=== PATIENT | female | born 1980 | race Asian ===

== ENCOUNTER 2016-07-19 14:34 | Outpatient (CLI) | payer MEDICAID ==
[~2016-07-19] VITALS: Ht 149.9 cm; Wt 75.8 kg
[2016-07-19 14:36] VITALS: Ht 149.9 cm; Wt 75.8 kg
[2016-07-19 14:43] VITALS: BP 140/73; PULSE 131; RESP 18
[2016-07-19] MEDS ORDERED: FERR325C PO (14:50)
[2016-07-19] MEDS ORDERED: CALC600T11 PO (14:50)
[2016-07-19] MEDS ORDERED: PRENAT PO (14:50)
[2016-07-19 15:29] VITALS: BP 124/70; PULSE 105
--- NOTE | 2016-07-19 16:07 | RADRPT ---
PROCEDURE: US OB biophysical profile. CLINICAL INDICATION: decreased movements, GDM TECHNIQUE: Multiple sonographic images of the pelvis were obtained. The images were reviewed on a PACS workstation. COMPARISON: No prior studies are available for comparison. FINDINGS: There is a single viable intrauterine gestation. Cardiac activity is present with 148 beats per min [place]. There is a vertex presentation. The placenta is anterior. There is no evidence of placental abruption. There is a normal amount of amniotic fluid with an LLOYD = 11.7 cm. Biophysical profile: movement 2/2 tone 2/2. breathing 2/2 LLOYD 2/2 Total 12/17 RPTAT: AA . IMPRESSION: Normal biophysical profile. . .Heath León MD, MD Date Time Electronically viewed and signed by .Heath León MD, MD on 07/19/2016 16:06 .S/
--- NOTE | 2016-07-22 12:17 | TRIAGE ---
OB Triage Datetime Report Generated by CPN: 07/22/2016 12:16 Datetime: 07/19/2016 16:10 Labor Evaluation Frequency: 1-3 Monitor Mode: External Duration (sec)2399: 50-100 Quality: Mild Pattern: Normal: <= 5 Contractions in 10 Minutes Resting Tone [place]: Relaxed Heart Rate FHR Baseline Rate: 140 Monitor Mode: External US FHR Baseline Changes: No Baseline Change Variability: Moderate 6-25 bpm Accelerations: 15X15 Decelerations: None Category: Category I Pain Assessment Pain Presence: None/Denies Pain Type: Contraction; Pressure Pain Location: Abdomen Pain Relief Measures: Comfort Measures Pain Assessment Comments: Pt denies feeling pain with contractions, only states feeling pressure Datetime: 07/19/2016 15:07 Labor Evaluation Frequency: 1-2.5 Monitor Mode: External Duration (sec)2399: 50-100 Quality: Mild Pattern: Normal: <= 5 Contractions in 10 Minutes Resting Tone [place]: Relaxed Heart Rate FHR Baseline Rate: 150 Monitor Mode: External US FHR Baseline Changes: No Baseline Change Variability: Moderate 6-25 bpm Accelerations: 15X15 Decelerations: None Category: Category I Pain Assessment Pain Presence: Intermittent Pain Type: Contraction Pain Location: Abdomen Pain Relief Measures: Comfort Measures Pain Assessment Comments: Pt denies feeling pain with contractions, only pressure Datetime: 07/19/2016 14:50 Assessment Type: Triage Maternal Assessment Level of Consciousness: Fully Conscious DTR's/Clonus: DTRs 2+; No Clonus Headache: Denies Blurred Vision: No Respiratory Effort: Unlabored; Regular Rhythm; Equal Expansion Breath Sounds, Left: Clear and Equal Breath Sounds, Right: Clear and Equal Nausea/Vomiting: Denies RUQ Epigastric Pain: Denies Lower Extremities Edema: None Degree: None Upper Extremities Edema: None Degree: None Facial Edema: None Fall Risk Assessment History of Falling: (0) No Secondary Diagnosis: (0) No Ambulatory Aid: (0) Bedrest/Nurse Assist IV Therapy: (0) No Gait: (0) Normal/Bedrest/Immobile Mental Status: (0) Oriented to Own Ability Fall Score: 0 Fall Risk Score Definition: No Risk: No action required Datetime: 07/19/2016 14:46 Vaginal Exam Dilatation (cms): 1.0 Effacement (%): 50 Station: -3 Exam By: Joselyn RN Datetime: 07/19/2016 14:37 Time of Arrival: 07/19/2016 14:30 EGA: 39.0 Arrived By: Ambulatory Arrived From: Dr. Billings Chief Complaint: Pt is Gestational Diabetic sent from clinic for BPP Movement: Present Contractions: Denies/Absent Contractions: Pt states "usually at night I feel them" Rupture of Membranes: Denies Vaginal Bleeding: Normal Show Vaginal Discharge: Denies Recent Sexual Intercouse: Denies Abdominal Trauma: Not Applicable Patient Complaints: None Time Provider Notified: 07/19/2016 15:45 Provider Notified: Philippe Initial Plan: NST, VE, BPP Datetime: 07/19/2016 14:35 Stage of : OB Triage
== END 2016-07-19 16:40 | disposition home or self-care (01) ==
LOC: OBT 14:34 → L-D 14:35 → OBT 16:40
PROVIDERS: ATTEND Obstetrics & Gynecology
DX: O24.419 Gestational diabetes mellitus in pregnancy, unspecified control (principal); O36.8130 Decreased fetal movements, third trimester, not applicable or unspecified; Z3A.39 39 weeks gestation of pregnancy
CPT/HCPCS: 76818; Z7500; G0463

== ENCOUNTER 2016-07-26 09:18 | Inpatient (IN) | payer MEDICAID ==
[~2016-07-26] VITALS: Ht 152.4 cm; Wt 77.0 kg
[~2016-07-26 09:18] MED LIST: CALC600T11 PO; FERR325C PO; PRENAT PO
[2016-07-26] MEDS ORDERED: LACTATED RINGER'S 1,000 ML IV PRN (10:00)
[2016-07-26] MEDS ORDERED: MISOPROSTOL 200 MCG TAB PR PRN (10:30)
[2016-07-26] MEDS ORDERED: METHYLERGONOVINE 0.2 MG INJ IM PRN (10:30)
[2016-07-26] MEDS ORDERED: LIDOCAINE 1% (MPF) 30 ML INJ INJ PRN (10:30)
[2016-07-26] MEDS ORDERED: OXYTOCIN 30 UNITS/LR 500 ML IV SCH ×3 (10:30→15:30)
[2016-07-26] MEDS ORDERED: OXYTOCIN 30 UNITS/LR 500 ML IV PRN (10:30)
[2016-07-26] MEDS ORDERED: CARBOPROST 250 MCG INJ IM PRN (10:30)
[2016-07-26] MEDS: LACTATED RINGER'S 1,000 ML IV SCH ×2 (10:56→15:59)
[2016-07-26 11:28] LABS: ADD SCAN DIFF NO
[2016-07-26 11:38] LABS: BASOPHILS % 0.2 % (0.0-2.0); EOSINOPHILS # 0.1 10^3/ul (0.0-0.5); EOSINOPHILS % 1.3 % (0.0-7.0); HEMATOCRIT 38.1 % (37.0-47.0); HEMOGLOBIN 12.8 g/dl (12.0-16.0); LYMPHOCYTES # 1.8 10^3/ul (0.8-2.9); LYMPHOCYTES % 20.7 % (15.0-51.0); MEAN CORPUSCULAR HEMOGLOBIN 31.1 pg (29.0-33.0); MEAN CORPUSCULAR HGB CONC 33.6 g/dl (32.0-37.0); MEAN CORPUSCULAR VOLUME 92.5 fl (82.0-101.0); MEAN PLATELET VOLUME 10.2 fl (7.4-10.4); MONOCYTE # 0.5 10^3/ul (0.3-0.9); MONOCYTES % 6.1 % (0.0-11.0); NEUTROPHIL # 6.1 10^3/ul (1.6-7.5); NEUTROPHILS % 70.6 % (39.0-77.0); PLATELET COUNT 265 10^3/UL (140-415); RED BLOOD COUNT 4.12 10^6/ul (4.20-5.40); RED CELL DISTRIBUTION WIDTH 14.2 % (11.5-14.5); WHITE BLOOD COUNT 8.6 10^3/ul (4.8-10.8)
--- NOTE | 2016-07-26 11:41 | RADRPT ---
PROCEDURE: US OB biophysical profile. CLINICAL INDICATION: evaluation, gestational diabetes TECHNIQUE: Multiple sonographic images of the pelvis were obtained. The images were reviewed on a PACS workstation. COMPARISON: Obstetrical ultrasound from 07/19/2016 FINDINGS: There is a single viable intrauterine gestation. Cardiac activity is present with 139 beats per min [place]. There is a vertex presentation. The placenta is anterior. There is no evidence of placental abruption. There is a normal amount of amniotic fluid with an LLOYD = 15.6 cm. Biophysical profile: movement 2/2 tone 2/2. breathing 2/2 LLOYD 2/2 Total 12/17 RPTAT: AA . IMPRESSION: Normal biophysical profile. Normal LLOYD. Physician Mary Ellen Date Time Electronically viewed and signed by Physician Mary Ellen on 07/26/2016 11:41 /
--- NOTE | 2016-07-26 11:43 | RADRPT ---
PROCEDURE: US OB CLINICAL INDICATION: PT HAS GESTATIONAL DIABETES TECHNIQUE: Multiple sonographic images of the pelvis were obtained. The images were reviewed on a PACS workstation. COMPARISON: Obstetrical ultrasound from 07/19/2016 FINDINGS: The cervix is not well visualized. There is a single viable intrauterine gestation. Cardiac activity is present with 144 beats per minute. There is a vertex presentation. The placenta is anterior. There is no evidence for an abruption or placenta previa. There is a normal amount of amniotic fluid with an LLOYD = 15.6 cm. Measurements were made in order to determine age. The results are as follows (cm): BPD =9.81 HC =34.55 AC =37.59 FL =7.27 Estimated gestational age by ultrasound of approximately 39 weeks, 5 days. The estimated date of delivery by ultrasound is 07/28/2016. Reported gestational age by LMP of approximately 40 weeks, 0 days. The reported date of delivery by LMP is 07/26/2016. EFW = 4072 grams (83rd percentile) IMPRESSION: Single viable intrauterine gestation of approximately 39 weeks, 5 days . The estimated date of delivery is 07/28/2016 . Dating by ultrasound is within 2 days of dating by LMP. Normal LLOYD. Estimated weight is in the 83rd percentile. Cephalic presentation. RPTAT: EE Physician Mary Ellen Date Time Electronically viewed and signed by Physician Mary Ellen on 07/26/2016 11:43 /
[2016-07-26 11:50] LABS: INR 0.96; PROTIME 12.8 Sec (12.2-14.2)
[2016-07-26 11:51] LABS: PARTIAL THROMBOPLASTIN TIME 27.5 Sec (25.0-35.0)
[2016-07-26] MEDS: DEXTROSE 5%-LR 1,000 ML IV SCH (21:03)
[2016-07-26] MEDS ORDERED: FENTAnyl 2MCG/ML-ROPIV 0.2% 0 ML ONE (21:15)
[2016-07-27 01:29] VITALS: Ht 152.4 cm; Wt 77.0 kg
[2016-07-27] MEDS: LACTATED RINGER'S 1,000 ML IV SCH ×3 (03:48→12:36)
[2016-07-27] MEDS ORDERED: DIPHENHYDRAMINE 50 MG INJ IV PRN ×2 (04:00→23:30)
[2016-07-27] MEDS ORDERED: NALOXONE (0.4 MG/ML) INJ IV PRN ×2 (04:00→23:30)
[2016-07-27] MEDS ORDERED: ONDANSETRON 4 MG INJ IV PRN ×2 (04:00→23:30)
[2016-07-27] MEDS: FENTAnyl 2MCG/ML-ROPIV 0.2% 100 ML BAG EPI SCH ×2 (11:12→18:49)
[2016-07-27] MEDS: DEXTROSE 5%-LR 1,000 ML IV SCH (18:50)
[2016-07-27] MEDS ORDERED: CEFAZOLIN 2 GM/50 ML (PMX) 50 ML IVPB ONE (20:30)
[2016-07-27 20:31] LABS: POTASSIUM 3.4 mmol/L (3.5-5.1)
[2016-07-27] MEDS ORDERED: OXYTOCIN 30 UNITS/LR 500 ML IV SCH (20:52)
[2016-07-27] MEDS ORDERED: LACTATED RINGER'S 1,000 ML IV SCH (20:52)
--- NOTE | 2016-07-27 20:52 | PN ---
Date/Time of Note Date/Time of Note DATE: 07/27/16 TIME: 20:47 OB Subjective Subjective Subjective went in to reassess patient; she is comfortable, was 8cm at 6pm OB Objective Objective Objective Maternal pulse 140's Abdomen- gravid, n/t FHT- mod arden, + accel, +arden decel, Cat I [place]- ctx q 2-4 min SVE- 7-8/80/-4 Abdomen: WNL Accelerations: Accelerations Present Decelerations: Variable Decelerations Varibility: Moderate Contractions on Admission: < 5 Minutes Apart Intensity: Mild OB Assessment/Plan Other Assessment: 36 yo P2, w GDMA1, and A-fib, with protracted labor - arrest of dilation at 8cm, w adequate ctx Other plan: counselled patient on options - offered to wait and reassess in 1 hr -offered c/d, as labor is protracted, patient is diabetic, w/ a-fib and baby feels large on palpation - patient desires to proceed w c/d; anesthesia, nursing notified DEEDEE YOUNG MD Jul 27, 2016 20:51
[2016-07-27] MEDS ORDERED: CEFAZOLIN 1 GM/50 ML (PMX) 50 ML IV ONE (21:00)
[2016-07-27] MEDS ORDERED: METHYLERGONOVINE 0.2 MG INJ IM PRN (21:00)
[2016-07-27] MEDS ORDERED: MISOPROSTOL 200 MCG TAB PR PRN (21:00)
[2016-07-27] MEDS ORDERED: OXYTOCIN 30 UNITS/LR 500 ML IV PRN (21:00)
[2016-07-27] MEDS ORDERED: ACETAMINOPHEN/CODEINE #3 TAB PO PRN ×2 (21:00)
[2016-07-27] MEDS ORDERED: CARBOPROST 250 MCG INJ IM PRN (21:00)
[2016-07-27] MEDS ORDERED: EPHEDrine SULFATE 50 MG/5 ML SYG ONE (21:20)
[2016-07-27] MEDS ORDERED: morphine SULFATE/PF (10 MG/10 ML) INJ ONE (21:20)
[2016-07-27] MEDS ORDERED: OXYTOCIN 30 UNITS/LR 500 ML IV ONE (21:20)
[2016-07-27] MEDS ORDERED: METOCLOPRAMIDE 10 MG INJ ONE (21:20)
[2016-07-27] MEDS ORDERED: OXYTOCIN 10 UNIT INJ ONE (21:20)
[2016-07-27] MEDS ORDERED: ONDANSETRON 4 MG INJ ONE (21:20)
[2016-07-27] MEDS ORDERED: LIDOCAINE 2%/EPI 30 ML INJ ONE (21:20)
--- NOTE | 2016-07-27 22:53 | OPR ---
Operative Report Planned Procedure Free Text/Dictation 36 yo P2 @ 40+ wks w arrest of dilation at 8cm Procedure date Jul 27, 2016 Procedure(s) Primary c/d Performed by: DEEDEE YOUNG MD Assisting provider: JANESSA BERMAN Pre-procedure diagnosis arrest of dilation at 8cm Anesthesia Type: epidural Procedure Description Under satisfactory [epidural] anesthesia, the patient was prepped and draped and placed in a supine position, tilted to the left. Pfannenstiel incision was made, carried through the subcutaneous tissue. Bleeders brought under control with electrocautery. Fascia incised to the length of the incision. Rectus muscles from the fascia, divided midline. Peritoneum exposed, entered bluntly. Exploration of abdomen revealed gravid uterus. Bladder flap was developed. Transverse incision was made in the lower segment of the uterus. Amniotic sac ruptured. [clear] amniotic fluid noted. [] Nasal oropharyngeal suction was performed. The baby was handed to the team for immediate attention. The placenta was delivered manually intact. Uterine cavity was cleaned with wet sponge and drainage established. Uterus closed in 2 layers using [0 vicryl] in continuous fashion. Several figure of eight sutures placed to obtain hemostasis. Hemabate given for uterine atony. Peritoneal cavity irrigated with warm saline. Sponge, needle and instrument count reported to be correct. Abdominal peritoneum closed with [2 vicyrl] continuously. Rectus muscle approximated with [0 chromic]. Fascia closed with [0 vicryl], and skin closed with subcuticular sutures w 4 monocryl. Estimated blood loss [1000]mL. Post-Procedure Post-procedure diagnosis same, now s/p primary c/d Findings: Live Baby [boy], Apgars [9] and 9[], weight [9lbs], Complications: None Complications patient had A-fib, but spontaneously reverted to nml HR Pt Condition post procedure: stable Physician Certification I, the undersigned physician, hereby certify that I have discussed the procedure described in this consent form with this patient (or the patient's legal employee's representative), including: * The risk and benefits of the procedure; * Any adverse reactions that may reasonably be expected to occur; * Any alternative efficacious methods of treatment which may be medically viable ; * The potential problems that may occur during recuperation; * Potential for blood transfusion and associated risks/benefits; and * Any research or economic interest I may have regarding this treatment. I further certify that the patient/legally responsible person was encouraged to ask question and that all questions were answered. DEEDEE YOUNG MD Jul 27, 2016 22:53
[2016-07-27] MEDS: KETOROLAC 30 MG INJ IV PRN (23:29)
[2016-07-27] MEDS ORDERED: HYDROmorphONE 1 MG/ML SYG IV PRN (23:30)
[2016-07-27] MEDS ORDERED: morphine SULFATE/PF (10 MG/10 ML) INJ EPI ONE (23:30)
[2016-07-27] MEDS ORDERED: morphine 2 MG INJ IV PRN ×2 (23:30)
[2016-07-27 23:57] VITALS: BP 128/70; PULSE 102; PULSE 98; RESP 18
[2016-07-28] VITALS (12 sets, daily range): BP systolic 102–112; BP diastolic 51–80; PULSE 100–120; RESP 16–26
[2016-07-28] MEDS: LACTATED RINGER'S 1,000 ML IV SCH ×5 (02:30→22:06)
[2016-07-28 04:37] LABS: ADD SCAN DIFF NO
[2016-07-28 04:44] LABS: BASOPHILS % 0.1 % (0.0-2.0); HEMATOCRIT 31.3 % (37.0-47.0); HEMOGLOBIN 10.2 g/dl (12.0-16.0); LYMPHOCYTES # 1.3 10^3/ul (0.8-2.9); LYMPHOCYTES % 6.4 % (15.0-51.0); MEAN CORPUSCULAR HEMOGLOBIN 30.9 pg (29.0-33.0); MEAN CORPUSCULAR HGB CONC 32.6 g/dl (32.0-37.0); MEAN CORPUSCULAR VOLUME 94.8 fl (82.0-101.0); MEAN PLATELET VOLUME 10.1 fl (7.4-10.4); MONOCYTE # 1.1 10^3/ul (0.3-0.9); MONOCYTES % 5.1 % (0.0-11.0); NEUTROPHIL # 18.4 10^3/ul (1.6-7.5); NEUTROPHILS % 87.8 % (39.0-77.0); PLATELET COUNT 224 10^3/UL (140-415); RED CELL DISTRIBUTION WIDTH 14.3 % (11.5-14.5); WHITE BLOOD COUNT 20.9 10^3/ul (4.8-10.8)
[2016-07-28 04:56] LABS: POTASSIUM 3.6 mmol/L (3.5-5.1)
[2016-07-28 04:59] LABS: CREATININE 0.71 mg/dl (0.44-1.00); PHOSPHORUS 5.2 mg/dl (2.5-4.9)
[2016-07-28 05:00] LABS: CALCIUM 8.3 mg/dl (8.4-10.2); MAGNESIUM 1.6 mg/dl (1.7-2.5)
[2016-07-28] MEDS ORDERED: MAGNESIUM SULFATE 2 GM/50 ML 50 ML IVPB ONE (09:00)
--- NOTE | 2016-07-28 12:21 | PN ---
Date/Time of Note Date/Time of Note DATE: 07/28/16 TIME: 12:19 Assessment/Plan VTE Prophylaxis VTE Prophylaxis Intervention: ambulation Lines/Catheters IV Catheter Type (from Nrs): Peripheral IV Assessment/Plan Chief Complaint/Hosp Course 1. Afib c RVR- resolved after , currently in NSR DG to Post FU on Echo 2. s/p C section management per OB Problems: Subjective 24 Hr Interval Summary Constitutional: no complaints Exam/Review of Systems Vital Signs Vitals Vital Signs Date Time Temp Pulse Resp B/P Pulse Ox O2 Delivery O2 Flow Rate FiO2 07/28/16 08:00 113 07/28/16 07:00 23 103/57 97 Room Air 07/28/16 04:00 98.2 Intake and Output 07/27/16 07/27/16 07/28/16 15:00 23:00 07:00 Intake Total 1434 ml 251 ml 375 ml Output Total 250 ml 600 ml 550 ml Balance 1184 ml -349 ml -175 ml Exam Constitutional: alert, oriented Respiratory: clear to auscultation Cardiovascular: regular rate and rhythm Gastrointestinal: soft, No distended Musculoskeletal: nl extremities to inspection Results Result Diagram: 07/28/16 0420 07/28/16 0420 Results 24 hrs Laboratory Tests Test 07/27/16 14:35 07/27/16 17:24 07/27/16 19:53 07/27/16 20:43 Bedside Glucose 64 L 83 72 Anion Gap 19 H Carbon Dioxide Level 18 L Chloride Level 107 Potassium Level 3.4 L Sodium Level 141 Test 07/28/16 00:13 07/28/16 04:20 Bedside Glucose 137 Anion Gap 19 H Basophils # 0.0 Basophils % 0.1 Blood Urea Nitrogen 4 L Calcium Level 8.3 L Carbon Dioxide Level 16 L Chloride Level 111 H Creatinine 0.71 Eosinophils # 0.0 Eosinophils % 0.0 Glucose Level 133 Hematocrit 31.3 L Hemoglobin 10.2 #L Lymphocytes # 1.3 Lymphocytes % 6.4 L Magnesium Level 1.6 L Mean Corpuscular Hemoglobin 30.9 Mean Corpuscular Hemoglobin Concent 32.6 Mean Corpuscular Volume 94.8 Mean Platelet Volume 10.1 Monocytes # 1.1 H Monocytes % 5.1 Neutrophils # 18.4 H Neutrophils % 87.8 H Nucleated Red Blood Cells # 0.0 Nucleated Red Blood Cells % 0.0 Phosphorus Level 5.2 H Platelet Count 224 Potassium Level 3.6 Red Blood Count 3.30 L Red Cell Distribution Width 14.3 Sodium Level 142 White Blood Count 20.9 #H Medications Medications Current Medications Methylergonovine Maleate (Methergine) 0.2 mg ONCE PRN IM VAGINAL BLEEDING; Start 07/27/16 at 21:00 Misoprostol (Cytotec) 1,000 mcg ONCE PRN NH VAGINAL BLEEDING; Start 07/27/16 at 21:00 Ketorolac Tromethamine (Toradol) 30 mg Q6H PRN IV PAIN Last administered on 23:29; Admin Dose 30 MG; Start 07/27/16 at 23:30; Stop 07/28/16 at 23:29 Morphine Sulfate (morphine) 2 mg Q3H PRN IV PAIN LEVEL 1-5 Last administered on 07/28/16 09:54; Admin Dose 2 MG; Start 07/27/16 at 23:30; Stop 07/28/16 at 23:29 Morphine Sulfate (morphine) 4 mg Q3H PRN IV PAIN LEVEL 6-10; Start 07/27/16 at 23:30; Stop 07/28/16 at 23:29 Hydromorphone HCl (Dilaudid) 0.2 mg Q3H PRN IV PAIN LEVEL 1-5; Start 07/27/16 at 23:30; Stop 07/28/16 at 23:29 Hydromorphone HCl 0.4 mg 0.4 mg Q3H PRN IV PAIN LEVEL 6-10; Start 07/27/16 at 23:30; Stop 07/28/16 at 23:29 Lactated Ringer's (Lr) 1,000 ml @ 125 mls/hr Q8H IV Last administered on 04:17; Admin Dose 125 MLS/HR; Start 07/28/16 at 02:30 GREGORIO VALDOVINOS Jul 28, 2016 12:21
[2016-07-28] MEDS: HYDROmorphONE 1 MG/ML SYG IV PRN ×2 (13:45→17:44)
[2016-07-28] MEDS: KETOROLAC 30 MG INJ IV PRN (16:47)
[2016-07-28] MEDS: IBUPROFEN 800 MG TAB PO SCH ×2 (16:54→22:05)
[2016-07-28] MEDS ORDERED: METHYLERGONOVINE 0.2 MG INJ IM PRN (17:00)
[2016-07-28] MEDS ORDERED: MISOPROSTOL 200 MCG TAB PR PRN (17:00)
[2016-07-28] MEDS ORDERED: LANOLIN 7 GM TUBE TOP PRN (17:00)
[2016-07-28] MEDS ORDERED: OXYTOCIN 30 UNITS/LR 500 ML IV PRN (17:00)
[2016-07-28] MEDS ORDERED: CARBOPROST 250 MCG INJ IM PRN (17:00)
--- NOTE | 2016-07-28 17:46 | QN ---
Documentation Comment POD #1 s/p primary c/s for FTP/failure to descend. Pt had A fib during labor until just before delivery when she spontaneously converted. The delivering doctor sent her overnight to the ICU and she has now come to maternity as she has remained stable. Pt feels well. No SOB. Is hungry. No flatus as of yet but no nausea. Emphatically states that she does not want the lipscomb catheter out until tomorrow. T= 98.5 BP 102/55 Fundus firm. Dressing clean, dry, and intact. Lochia minimal. Legs with A-pumps in place. WBC 20.9 Hgb 10 P: repeat CBC in AM. Continue care. Regular diet for dinner. A-pumps and the lipscomb until tomorrow. LIZA LESTER MD Jul 28, 2016 17:45
--- NOTE | 2016-07-28 20:03 | RADRPT ---
Echocardiogram Report Patient Name: MELVIN BARRETT Gender: Female Date: 1980 Study Date: 28-Jul-2016 [place] Band Sawyer: TAMARA Location: I Ref. Physician: GREGORIO VALDOVINOS Quality: Adequate Procedures: Transthoracic echocardiogram with complete 2D, M-Mode, and Doppler examination. Indications: Atrial Fibrillation. 2D/M Mode Doppler Measurement Value Normal Ranges Measurement Value Normal Ranges AoR Diam MM 2.7 cm AV Peak Aldo 1.7 m/sec ACS MM 1.6 cm AV Peak PG 11.4 mmHg LVIDd 2D 3.9 3.5 - 5.6 cm LVOT Peak Aldo 0.9 m/sec LVIDs 2D 2.6 2.1 - 4.1 cm LVOT Peak PG 2.9 mmHg LVPWd 2D 0.9 0.6 - 1.1 cm PV Peak Aldo 1.3 m/sec IVSd 2D 1.0 0.6 - 1.1 cm PV Peak PG 6.0 mmHg EDV 2D 65.3 cm3 ESV 2D 17.9 cm3 LA Dimen 2D 3.1 2.3 - 4.0 cm Findings Left Ventricle: Normal left ventricular systolic function. Normal left ventricular cavity size. Normal left ventricular wall thickness. Ejection fraction is visually estimated at 0 %. Tissue Doppler/Mitral Doppler indices are within normal limits. E/E`=13. Right Ventricle: Normal right ventricular size. Normal right ventricular systolic function. Left Atrium: The left atrium is normal in size. Right Atrium: The right atrium is normal in size. Atrial Septum: Normal atrial septum. Ventricular septum: Normal/intact ventricular septum. Mitral Valve: Normal appearance of the mitral valve. No mitral valve regurgitation is seen. Aortic Valve: No significant aortic stenosis or insufficiency. Normal trileaflet aortic valve structure. Tricuspid Valve: Normal appearance of the tricuspid valve. No evidence of tricuspid regurgitation. Pulmonic Valve: Normal pulmonic valve appearance. No evidence of pulmonic regurgitation. Pericardium: Normal pericardium with no significant pericardial effusion. Aorta: Normal aortic root. IVC: Normal size and normal respiratory collapse consistent with normal right atrial pressure. Pulmonary Artery: Normal pulmonary artery size. Conclusions 1.Normal left ventricular systolic function. Normal left ventricular cavity size. Normal left ventricular wall thickness. Ejection fraction is visually estimated at 0 %. Tissue Doppler/Mitral Doppler indices are within normal limits. E/E`=13. 2.Normal appearance of the tricuspid valve. No evidence of tricuspid regurgitation. 3.Normal appearance of the mitral valve. No mitral valve regurgitation is seen. Electronically Signed By: Michael Erwin 28-Jul-2016 20:02:08 -0700 Patient Name: MELVIN BARRETT Study Date: 28-Jul-2016 [id number]
[2016-07-29] MEDS: OXYCODONE/ACETAMINOPHEN (5/325) TAB PO PRN ×4 (00:11→23:12)
[2016-07-29 03:50] VITALS: BP 96/60; PULSE 97; RESP 18
[2016-07-29] MEDS: IBUPROFEN 800 MG TAB PO SCH ×3 (05:31→21:38)
[2016-07-29] MEDS: LACTATED RINGER'S 1,000 ML IV SCH (06:22)
--- NOTE | 2016-07-29 07:09 | CONS ---
DATE OF ADMISSION: 07/26/2016 DATE OF CONSULTATION: 07/27/2016 CONSULTATION CHIEF COMPLAINT: Tachycardia. HISTORY OF PRESENT ILLNESS: The patient is a 36-year-old female with no significant medical history . She has no cardiac history. She does have a history of 2 vaginal deliveries in the past. She co mes in now 41 weeks pending a vaginal delivery. The patient did develop a tachyarrhythmia today, and a medicine consult was placed for this. EKG was done and showed atrial fibrillation with RVR. She has no history of any arrhythmia, no history of any cardiomyopathy. She denie s any chest pain at this time. She has no other complaints. PAST MEDICAL HISTORY: Negative except for 2 vaginal deliveries in the past. PAST SURGICAL HISTORY: She denies. HOME MEDICATIONS: vitamin, calcium, and iron. ALLERGIES: NO KNOWN DRUG ALLERGIES. FAMILY HISTORY: Grandfather of heart disease in his 60s. SOCIAL HISTORY: Denies any alcohol, tobacco, or drug abuse. REVIEW OF SYSTEMS: A 12-point review of systems negative except for that discussed in HPI. PHYSICAL EXAMINATION: VITAL SIGNS: Heart rate has been tachycardic in the 90s to low 100s, blood pressure is stable, resp iratory rate is stable, and O2 saturation is stable. GENERAL: No acute distress, alert and oriented. HEENT: Normocephalic, atraumatic. LUNGS: Clear to auscultation. CARDIOVASCULAR: Tachycardic. ABDOMEN: Intrauterine gestation noted. Nontender, soft. EXTREMITIES: No clubbing, cyanosis, or edema. LABORATORIES: CBC: White count is 8.6, hemoglobin is 12.8, platelets of 265. Chemistry: Glucose has been within normal limits. INR is 0.96. RPR is nonreactive. Hep B surface antigen is negative . DIAGNOSTICS: EKG shows atrial fibrillation with RVR. ASSESSMENT AND PLAN: 1. Atrial fibrillation with rapid ventricular response. The patient's heart rate has been function ing between the 90s to low 100s. At this time, we will not give any Cardizem IV out of concern for the fetus becoming bradycardic. Recommendation is to deliver as soon as possible, and the patient m ay convert on her own. There is no history of any cardiac disorder, no history of any arrhythmias i n the past. The patient may very well likely convert after her delivery. If the patient continues to have a tachyarrhythmia, we will then give Cardizem once she is no longer . We will follo w up on the 2-D echo result, and if the patient has persistent tachyarrhythmia and/or any unusual fi ndings on echo, we will consult Cardiology. 2. Intrauterine gestation. The patient does have cervical dilation and is likely to deliver in the near future. The patient is status post 2 vaginal deliveries in the past. OB preference at this t stacia is for vaginal delivery at this time. Dictated By: GREGORIO VALDOVINOS MD BS/NTS Conf#: [id number] DID#: [id number]
[2016-07-29 08:00] VITALS: BP 102/50; PULSE 106; RESP 18
[2016-07-29 08:14] LABS: ADD SCAN DIFF NO
[2016-07-29 08:29] LABS: CREATININE 0.54 mg/dl (0.44-1.00)
[2016-07-29 08:30] LABS: CALCIUM 7.5 mg/dl (8.4-10.2); MAGNESIUM 1.6 mg/dl (1.7-2.5); PHOSPHORUS 2.6 mg/dl (2.5-4.9)
[2016-07-29 08:44] LABS: BASOPHILS % 0.2 % (0.0-2.0); EOSINOPHILS # 0.1 10^3/ul (0.0-0.5); EOSINOPHILS % 0.9 % (0.0-7.0); HEMATOCRIT 22.2 % (37.0-47.0); HEMOGLOBIN 7.3 g/dl (12.0-16.0); LYMPHOCYTES # 1.6 10^3/ul (0.8-2.9); LYMPHOCYTES % 12.2 % (15.0-51.0); MEAN CORPUSCULAR HEMOGLOBIN 31.3 pg (29.0-33.0); MEAN CORPUSCULAR HGB CONC 32.9 g/dl (32.0-37.0); MEAN CORPUSCULAR VOLUME 95.3 fl (82.0-101.0); MEAN PLATELET VOLUME 10.2 fl (7.4-10.4); MONOCYTE # 0.8 10^3/ul (0.3-0.9); MONOCYTES % 6.3 % (0.0-11.0); NEUTROPHIL # 10.3 10^3/ul (1.6-7.5); NEUTROPHILS % 79.9 % (39.0-77.0); PLATELET COUNT 182 10^3/UL (140-415); RED BLOOD COUNT 2.33 10^6/ul (4.20-5.40); RED CELL DISTRIBUTION WIDTH 14.7 % (11.5-14.5); WHITE BLOOD COUNT 12.8 10^3/ul (4.8-10.8)
[2016-07-29] MEDS ORDERED: INFLUENZA VIRUS VACCINE 0.5 ML SYG IM* ONE (09:00)
[2016-07-29] MEDS ORDERED: MAGNESIUM CHLORIDE (SR) 64 MG TAB PO ONE (11:00)
[2016-07-29] MEDS ORDERED: POTASSIUM CHLORIDE (SR) 20 MEQ TAB PO SCH (11:00)
--- NOTE | 2016-07-29 11:07 | PN ---
DATE: 07/29/2016 Time of evaluation: 0930 AM. SUBJECTIVE DATA: Denies any chest pain. Denies any palpitations or shortness of breath. Complains of incisional pain. OBJECTIVE DATA: VITAL SIGNS: Temperature 98.4, pulse rate 97, respiratory rate 18, blood pressure 96/60, oxygen saturation 97% on room air. GENERAL: This is an obese Filipina female lying in bed in no apparent distress. HEENT: Head normocephalic and atraumatic. Eyes: Anicteric sclerae. Conjunctivae clear. ENT: Nasal septum is midline. Oral mucosa is moist. NECK: Supple. No JVD noticed. RESPIRATORY: Bilaterally clear to auscultation. No adventitious breath sounds. No use of accessory muscles of respiration. CARDIAC: Regular rate and rhythm. No skipped beats. No murmurs heard. ABDOMEN: Lower segment dressing from . Diffuse tenderness upon abdominal palpation. GENITOURINARY: The patient has a Almanza catheter in place. EXTREMITIES: No cyanosis, no clubbing, no edema. Peripheral pulses are palpable. NEUROLOGIC: The patient is awake, alert and oriented. Cranial nerves are grossly intact. LABORATORY AND DIAGNOSTIC DATA: WBC 12.8, hemoglobin 7.3, hematocrit 22.2, platelet count 182. Sodium 139, potassium 3.0, chloride 108, carbon dioxide 25 , anion gap 10, BUN 5, creatinine 0.54, glucose 117, calcium 7.5, phosphorus 2.6 , magnesium 1.6. ASSESSMENT AND PLAN: 1. Paroxysmal atrial fibrillation. Currently converted to normal sinus rhythm , most probably secondary to the stress from labor. The patient does not need any medications. A 2D echocardiogram showing a typo of ejection fraction of "0% ". No need for further cardiac evaluation at this time. The patient has family history of cardiac arrhythmias. May need outpatient Cardiology followup if the patient continues to have palpitations or if the patient continues to have evidence of atrial fibrillation. 2. Status post . Continue postoperative management as per OB. 3. Hypokalemia. Replete 4. Hypomagnesemia, Replete. 5. Fluid, electrolytes and nutrition. Regular diet. 6. Deep venous thrombosis prophylaxis with bilateral sequential compression devices. 7. Gastrointestinal prophylaxis. Not indicated. 8. Plan. Continue pain control. Postoperative management as per OB. Replete potassium and magnesium. We will continue to follow the patient along with you. Thank you for the consult. Case discussed with Dr. Arango. VINCENT ARANGO MD, AM/CATHLEEN Conf#: [id number] DID#: [id number] MTDD
[2016-07-29 12:00] VITALS: BP 112/59; PULSE 104; RESP 19
--- NOTE | 2016-07-29 13:35 | PN ---
Date/Time of Note Date/Time of Note DATE: 07/29/16 TIME: 13:28 OB Subjective Subjective Subjective Post day 2 Afebrile her vital signs are stable today patient has normal for no more paroxysmal atrial fib, has no shortness of breath resting in bed comfortably abdomen soft incision dry bowel sounds present, no bowel movement, due to low hemoglobin advised ambulate if not feeling lightheaded or dizzy she may not need transfusion in case of lightheaded I recommended to receive 2 units of packedcell, she also being followed with internal medicine regarding her atrial fib, JERAMIE TABARES MD Jul 29, 2016 13:35
[2016-07-29 16:00] VITALS: BP 101/54; PULSE 101; RESP 17
[2016-07-29 19:20] VITALS: BP 101/66; PULSE 101; RESP 18
[2016-07-30 04:00] VITALS: BP 108/51; PULSE 105; RESP 18
[2016-07-30] MEDS: IBUPROFEN 800 MG TAB PO SCH ×3 (05:37→21:55)
[2016-07-30 08:05] VITALS: BP 114/58; PULSE 98; RESP 18
--- NOTE | 2016-07-30 10:20 | PN ---
Date/Time of Note Date/Time of Note DATE: 07/30/16 TIME: 10:18 Assessment/Plan VTE Prophylaxis VTE Prophylaxis Intervention: SCD's Lines/Catheters IV Catheter Type (from [facility]): [place] Assessment/Plan Chief Complaint/Hosp Course 1. Paroxysmal atrial fibrillation. Currently converted to normal sinus rhythm , most probably secondary to the stress from labor. The patient does not need any medications. A 2D echocardiogram showing a typo of ejection fraction of "0% ". No need for further cardiac evaluation at this time. The patient has family history of cardiac arrhythmias. May need outpatient Cardiology followup if the patient continues to have palpitations or if the patient continues to have evidence of atrial fibrillation. 2. Status post . Continue postoperative management as per OB. 3. Normocytic, normochromic anemia. Most probably anemia of acute blood loss. Monitor H&H closely. Transfusion will be deferred to OB. 4. Fluid, electrolytes and nutrition. Regular diet. 5. Deep venous thrombosis prophylaxis with bilateral sequential compression devices. 6. Gastrointestinal prophylaxis. Not indicated. 7. Plan. Continue pain control. Postoperative management as per OB. Patient can be discharged home from medical standpoint. We will continue to follow the patient along with you. Thank you for the consult. Case discussed with Dr. Simon. Problems: Subjective 24 Hr Interval Summary Free Text/Dictation [place] "wobbly" when tried to walk earlier. Denies any palpitations. Denies any chest pain. Denies any dyspnea. Exam/Review of Systems Vital Signs Vitals Vital Signs Date Time Temp Pulse Resp B/P Pulse Ox O2 Delivery O2 Flow Rate FiO2 07/30/16 04:00 98.6 105 18 108/51 Room Air 07/28/16 07:00 97 Intake and Output 07/29/16 07/29/16 07/30/16 15:00 23:00 07:00 Intake Total 700 ml Output Total 900 ml Balance -200 ml Exam GENERAL: This is an obese Filipina female sitting in a chair in no apparent distress. HEENT: Head normocephalic and atraumatic. Eyes: Anicteric sclerae. Conjunctivae clear. ENT: Nasal septum is midline. Oral mucosa is moist. NECK: Supple. No JVD noticed. RESPIRATORY: Bilaterally clear to auscultation. No adventitious breath sounds. No use of accessory muscles of respiration. CARDIAC: Regular rate and rhythm. No skipped beats. No murmurs heard. ABDOMEN: Lower segment dressing from . Diffuse tenderness upon abdominal palpation. GENITOURINARY: Deferred. EXTREMITIES: No cyanosis, no clubbing. Trace B/L pedal edema. Peripheral pulses are palpable. NEUROLOGIC: The patient is awake, alert and oriented. Cranial nerves are grossly intact. Results Result Diagram: 07/29/16 0720 07/29/16 0720 Medications Medications Current Medications Oxycodone/ Acetaminophen (Percocet (5/ 325)) 1 tab Q4H PRN PO PAIN LEVEL 4-6 Last administered on 07/29/16 15:54; Admin Dose 1 TAB; Start 07/28/16 at 17:00 Oxycodone/ Acetaminophen (Percocet (5/ 325)) 2 tab Q4H PRN PO PAIN LEVEL 7-10 Last administered on 07/29/16 23:12; Admin Dose 2 TAB; Start 07/28/16 at 17:00 Ibuprofen (Motrin) 800 mg Q8 PO Last administered on 07/30/16 05:37; Admin Dose 800 MG; Start 07/28/16 at 17:00 Diphtheria/ Tetanus/Acell Pertussis 0.5 ml 0.5 ml ONCE ONCE IM* ; Start at 09:00; Stop 07/31/16 at 09:01 Oxytocin/Lactated Ringer's 500 ml @ 0 mls/hr ONCE PRN IV For Hemorrhage Management; Start 07/28/16 at 17:00 Methylergonovine Maleate (Methergine) 0.2 mg ONCE PRN IM VAGINAL BLEEDING; Start 07/28/16 at 17:00 Carboprost Tromethamine (Hemabate) 250 mcg ONCE PRN IM VAGINAL BLEEDING; Start 07/28/16 at 17:00 Misoprostol (Cytotec) 1,000 mcg ONCE PRN LA VAGINAL BLEEDING; Start 07/28/16 at 17:00 VINCENT SINGH NP Jul 30, 2016 10:20
--- NOTE | 2016-07-30 10:28 | PN ---
Date/Time of Note Date/Time of Note DATE: 07/30/16 TIME: 10:24 OB Subjective Subjective Subjective Post day 3 Afebrile pulse rate in upper 90s when walking this morning felt short.period of lightheadedness, hemoglobin 7.1 blood transfusion discussed patient agreed she would be received 2 units of packedcell, examination of abdomen, soft bowel sounds. Present incision dry healing well patient had normal bowel movement plan of discharge a.m. after transfusion today discussed with the patient JERAMIE TABARES MD Jul 30, 2016 10:28
[2016-07-30 11:31] VITALS: BP 117/69; PULSE 97; RESP 16
[2016-07-30 11:43] LABS: HEMATOCRIT 23.9 % (37.0-47.0); HEMOGLOBIN 7.7 g/dl (12.0-16.0)
[2016-07-30] MEDS: OXYCODONE/ACETAMINOPHEN (5/325) TAB PO PRN ×2 (12:15→18:28)
[2016-07-30 16:09] VITALS: BP 101/46; PULSE 101; RESP 19
--- NOTE | 2016-07-30 18:16 | RADRPT ---
Vent Rate: 151 bpm RR Interval: 0 msec [place] Interval: 0 msec QRS Duration: 74 msec QT Interval: 292 msec QTC Interval: 462 msec P-R-T Lucien: 0 - 43 - 46 degrees Atrial fibrillation with rapid ventricular response Cannot rule out Anterior infarct , age undetermined Abnormal ECG Electronically Signed By: Howie Chaney [id number]
[2016-07-30 19:50] VITALS: BP 124/93; RESP 18
[2016-07-31 04:00] VITALS: BP 112/88; PULSE 97; RESP 18
[2016-07-31] MEDS: OXYCODONE/ACETAMINOPHEN (5/325) TAB PO PRN ×3 (04:48→13:13)
[2016-07-31] MEDS: IBUPROFEN 800 MG TAB PO SCH ×2 (05:38→13:13)
[2016-07-31 08:00] VITALS: BP 97/62; PULSE 89; RESP 17
[2016-07-31] MEDS ORDERED: DIPHTH/TET/ACEL PERTUSS (ADULT) 0.5 ML VIAL IM* ONE (09:00)
--- NOTE | 2016-07-31 09:47 | PD.PPDC ---
RESERVATIONS AND TICKETING AGENT Discharge Instruction Condition Patient Condition: Good Activity/Restrictions Activity: Normal Activity May Shower Restrictions: No Exercising No Lifting No Driving No Sexual Activity Nothing in the Vagina No [place] No Tampons, douche Follow-up Follow-up with Physician: 2, Week/Weeks Provider Information: Appointment clinic in 2 weeks for follow-up Return to clinic for OUTPATIENT PHYSICAL THERAPIST ASSISTANT Instructions: Fever greater than 101 Worsening abdominal pain More than 2 pads per hour Unable to tolerate diet OB Instructions: Breast Tenderness Depression Blurried Vision Headache Surgical Instructions: Incisional Drainage Incisional Redness JERAMIE TABARES MD Jul 31, 2016 09:47
--- NOTE | 2016-07-31 09:50 | PD.PPDC ---
PRINTER FLOOR COVERING ASSISTANT Discharge Instruction Condition Patient Condition: Good Activity/Restrictions Activity: Normal Activity May Shower Restrictions: No Exercising No Lifting No Driving No Sexual Activity Nothing in the Vagina No [place] No Tampons, douche Follow-up Follow-up with Physician: 2, Week/Weeks Return to clinic for TRIAL JUSTICE Instructions: Fever greater than 101 Worsening abdominal pain More than 2 pads per hour Unable to tolerate diet OB Instructions: Breast Tenderness Depression Blurried Vision Headache Surgical Instructions: Incisional Drainage Incisional Redness JERAMIE TABARES MD Jul 31, 2016 09:50
--- NOTE | 2016-07-31 10:08 | DS ---
Date/Time of Note Date/Time of Note DATE: 07/31/16 TIME: 09:59 Obstetrical Discharge Record Final Diagnosis Final Diagnosis: Term delivered Section Section: Primary Complications Other (arrest of cervical dilatation at 8 cm) Augmentation: Yes Induction: No Rupture of Membranes: No Condition on Discharge Physical Assessment Last Vitals: This is a 35 years old female 1 para 0 admitted in labor due to arrest of progress at 8 cm cervical dilatation underwent a primary section. Postoperative course was complicated with some atrial fibrillation which was treated with Cardizem also known chronic anemia with a hemoglobin of 9 which dropped to 7.7 after the delivery patient offered transfusion but she declined aside from above her postoperative course in the hospital was uneventful had no problem with urination or bowel movement on the third postoperative incision inspected found free of inflammation patient discharged with the appointment to be seen at the clinic in 4 days to discontinue jim also prescription for analgesics ferrous sulfate, vitamin Laboratory Tests Test 07/30/16 11:15 Hemoglobin 7.7g/dl Hematocrit 23.9% Current Medications Medications (Trade) Dose Ordered Sig/Danyell Route PRN Reason Start Time Stop Time Status Last Admin Dose Admin Lactated Ringer's 1,000 ml @ 125 mls/hr Q8H IV 07/26/16 10:22 07/28/16 02:02 DC 07/27/16 12:36 Lactated Ringer's (Lr) 1,000 ml @ 125 mls/hr Q8H IV 07/26/16 10:22 07/28/16 02:02 DC 07/27/16 07:18 Lidocaine 30 ml 30 ml ONCE PRN INJ EPISIOTOMY/TEARING 07/26/16 10:30 07/28/16 02:02 DC Oxytocin/Lactated Ringer's 500 ml @ 125 mls/hr ONCE -MAY REPEAT X1 IV 07/26/16 10:30 07/28/16 02:02 DC Oxytocin/Lactated Ringer's 500 ml @ 125 mls/hr ONCE IV 07/26/16 10:30 07/28/16 02:02 DC Lactated Ringer's 1,000 ml @ 2,000 mls/hr Q30M PRN IV PRE-EPIDURAL BOLUS 07/26/16 10:00 07/28/16 02:01 DC 07/27/16 02:56 Oxytocin/Lactated Ringer's 500 ml @ 0 mls/hr ONCE PRN IV For Hemorrhage Management 07/26/16 10:30 07/28/16 02:02 DC Methylergonovine Maleate (Methergine) 0.2 mg ONCE PRN IM VAGINAL BLEEDING 07/26/16 10:30 07/28/16 02:02 DC Carboprost Tromethamine (Hemabate) 250 mcg ONCE PRN IM VAGINAL BLEEDING 07/26/16 10:30 07/28/16 02:02 DC Misoprostol 1000 mcg 1,000 mcg ONCE PRN IA VAGINAL BLEEDING 07/26/16 10:30 07/28/16 02:02 DC Oxytocin/Lactated Ringer's 500 ml @ 0 mls/hr Q0M IV 07/26/16 15:30 07/28/16 02:01 DC 07/26/16 17:19 Dextrose/Lactated Ringer's 1,000 ml @ 125 mls/hr Q8H IV 07/26/16 20:39 07/28/16 02:01 DC 07/27/16 18:50 Fentanyl/ Ropivacaine 0 ml @ ud STK-MED ONCE .ROUTE 07/26/16 21:15 07/26/16 21:16 DC Naloxone HCl (Narcan) 0.1 mg Q2M PRN IV FOR RESP RATE 8 OR LESS 07/27/16 04:00 07/28/16 03:59 DC Diphenhydramine HCl (Benadryl) 25 mg Q6H PRN IV ITCHING 07/27/16 04:00 07/28/16 03:59 DC Ondansetron HCl (Zofran Inj) 4 mg Q6H PRN IV NAUSEA AND/OR VOMITING 07/27/16 04:00 07/28/16 03:59 DC Fentanyl/ Ropivacaine 100 ml 100 ml EPIDURAL INFUSION EPI 07/27/16 04:00 07/28/16 02:01 DC 07/27/16 18:49 Cefazolin Sodium/ Dextrose 50 ml @ 100 mls/hr ONCE ONCE IVPB 07/27/16 20:30 07/28/16 02:05 DC Lactated Ringer's 1,000 ml @ 125 mls/hr Q8H IV 07/27/16 20:52 07/28/16 02:01 DC Cefazolin Sodium 50 ml @ 100 mls/hr ONCE ONCE IV 07/27/16 21:00 07/28/16 02:05 DC Oxytocin/Lactated Ringer's 500 ml @ 125 mls/hr Q4H IV 07/27/16 20:52 07/28/16 02:01 DC Acetaminophen/ Codeine Phosphate (Tylenol No.3) 1 tab Q4H PRN PO PAIN LEVEL 4-6 07/27/16 21:00 07/28/16 02:01 DC Acetaminophen/ Codeine Phosphate (Tylenol No.3) 2 tab Q4H PRN PO PAIN LEVEL 7-10 07/27/16 21:00 07/28/16 02:01 DC Simethicone 160 mg 160 mg Q8H PRN PO DISTENSION/GAS/BLOATING 07/27/16 21:00 07/28/16 02:01 DC Oxytocin/Lactated Ringer's 500 ml @ 0 mls/hr ONCE PRN IV For Hemorrhage Management 07/27/16 21:00 07/28/16 02:02 DC Methylergonovine Maleate (Methergine) 0.2 mg ONCE PRN IM VAGINAL BLEEDING 07/27/16 21:00 07/28/16 16:51 DC Carboprost Tromethamine (Hemabate) 250 mcg ONCE PRN IM VAGINAL BLEEDING 07/27/16 21:00 07/28/16 02:03 DC Misoprostol (Cytotec) 1,000 mcg ONCE PRN IA VAGINAL BLEEDING 07/27/16 21:00 07/28/16 16:51 DC Ephedrine Sulfate 50 mg 50 mg STK-MED ONCE .ROUTE 07/27/16 21:20 07/27/16 21:21 DC Oxytocin/Lactated Ringer's 500 ml @ ud STK-MED ONCE IV 07/27/16 21:20 07/27/16 21:21 DC Morphine Sulfate (Duramorph) 10 mg STK-MED ONCE .ROUTE 07/27/16 21:20 07/27/16 21:21 DC Ondansetron HCl (Zofran Inj) 4 mg STK-MED ONCE .ROUTE 07/27/16 21:20 07/27/16 21:21 DC Metoclopramide HCl (Reglan) 10 mg STK-MED ONCE .ROUTE 07/27/16 21:20 07/27/16 21:21 DC Oxytocin (Oxytocin) 10 units STK-MED ONCE .ROUTE 07/27/16 21:20 07/27/16 21:21 DC Lidocaine/ Epinephrine (Xylocaine 2%/ Epi) 30 ml STK-MED ONCE .ROUTE 07/27/16 21:20 07/27/16 21:21 DC Naloxone HCl (Narcan) 0.1 mg Q2M PRN IV FOR RESP RATE 8 OR LESS 07/27/16 23:30 07/28/16 02:01 DC Ketorolac Tromethamine (Toradol) 30 mg Q6H PRN IV PAIN 07/27/16 23:30 07/28/16 16:55 DC 07/28/16 16:47 Morphine Sulfate (morphine) 2 mg Q3H PRN IV PAIN LEVEL 1-5 07/27/16 23:30 07/28/16 23:29 DC 07/28/16 09:54 Morphine Sulfate (morphine) 4 mg Q3H PRN IV PAIN LEVEL 6-10 07/27/16 23:30 07/28/16 23:29 DC Hydromorphone HCl (Dilaudid) 0.2 mg Q3H PRN IV PAIN LEVEL 1-5 07/27/16 23:30 07/28/16 23:29 DC Hydromorphone HCl (Dilaudid) 0.4 mg Q3H PRN IV PAIN LEVEL 6-10 07/27/16 23:30 07/28/16 23:29 DC 07/28/16 17:44 Diphenhydramine HCl (Benadryl) 25 mg Q6H PRN IV ITCHING 07/27/16 23:30 07/28/16 02:01 DC Ondansetron HCl (Zofran Inj) 4 mg Q6H PRN IV NAUSEA AND/OR VOMITING 07/27/16 23:30 07/28/16 02:01 DC Morphine Sulfate 2 mg 2 mg GIVEN ANESTH ONCE EPI 07/27/16 23:30 07/27/16 23:31 DC Lactated Ringer's 1,000 ml @ 125 mls/hr Q8H IV 07/28/16 02:30 07/28/16 16:59 DC 07/28/16 14:19 Magnesium Sulfate (Magnesium Sulfate 2 Gm/50 ml) 50 ml @ 25 mls/hr ONCE ONCE IVPB 07/28/16 09:00 07/28/16 10:59 DC 07/28/16 10:00 Influenza Virus Vaccine 0.5 ml 0.5 ml ONCE ONCE IM* 07/29/16 09:00 07/29/16 09:01 DC 07/29/16 09:30 Lactated Ringer's (Lr) 1,000 ml @ 125 mls/hr Q8H IV 07/28/16 16:38 07/29/16 16:25 DC 07/29/16 06:22 Oxycodone/ Acetaminophen (Percocet (5/ 325)) 1 tab Q4H PRN PO PAIN LEVEL 4-6 07/28/16 17:00 07/29/16 15:54 Oxycodone/ Acetaminophen (Percocet (5/ 325)) 2 tab Q4H PRN PO PAIN LEVEL 7-10 07/28/16 17:00 07/31/16 04:48 Ibuprofen (Motrin) 800 mg Q8 PO 07/28/16 17:00 07/31/16 05:38 Lanolin (Dmu-S-Iogznd) 1 applic BEDSIDE MEDICATION PRN TOP BEDSIDE FOR MACO TO NIPPLES 07/28/16 17:00 Diphtheria/ Tetanus/Acell Pertussis 0.5 ml 0.5 ml ONCE ONCE IM* 07/31/16 09:00 07/31/16 09:01 DC Oxytocin/Lactated Ringer's 500 ml @ 0 mls/hr ONCE PRN IV For Hemorrhage Management 07/28/16 17:00 Methylergonovine Maleate (Methergine) 0.2 mg ONCE PRN IM VAGINAL BLEEDING 07/28/16 17:00 Carboprost Tromethamine (Hemabate) 250 mcg ONCE PRN IM VAGINAL BLEEDING 07/28/16 17:00 Misoprostol (Cytotec) 1,000 mcg ONCE PRN IA VAGINAL BLEEDING 07/28/16 17:00 Potassium Chloride (Klor-Con 20) 40 meq ONCE PO 07/29/16 11:00 07/29/16 13:00 DC 07/29/16 11:38 Magnesium Chloride (Mag 64) 64 mg ONCE ONCE PO 07/29/16 11:00 07/29/16 11:01 DC 07/29/16 11:37 Voiding: Yes Bowel Movement: Yes Breast: Filling Fundus: Firm Abdomen and Incision: Healing well, dry Calf Tenderness: No Patient Condition: Good JERAMIE TABARES MD Jul 31, 2016 10:08
== END 2016-07-31 15:40 | disposition home or self-care (01) | DRG 766 ==
LOC: L-D 09:18 → ICU 07-28 00:21 → PP1 07-28 14:35
PROVIDERS: ADMIT Obstetrics & Gynecology; ATTEND Obstetrics & Gynecology
PROC: 10D00Z1 Extraction of Products of Conception, Low, Open Approach (ICD-10-PCS; principal; 2016-07-27 21:45)
DX: O62.1 Secondary uterine inertia (principal); I48.91 Unspecified atrial fibrillation; O48.0 Post-term pregnancy; Z3A.40 40 weeks gestation of pregnancy; O24.429 Gestational diabetes mellitus in childbirth, unspecified control; Z37.0 Single live birth
CPT/HCPCS: 76815; 76818; 80048; 80051; 82947; 82962; 83735; 84100; 85014; 85018; 85025; 85610; 85730; 86592; 86900; 86901; 87081; 87340; 90686; 90715; 93005; 93306; 99464; J0690; J1170; J1885; J2270; J2274; J2405; J2590; J2765; J3010; J3475; J7120; J7121

== ENCOUNTER 2017-05-11 11:30 | Emergency (ER) | END 2017-05-11 14:41 | disposition home or self-care (01) ==

== ENCOUNTER 2017-08-06 16:35 | Emergency (ER) | END 2017-08-06 18:52 | disposition home or self-care (01) ==

== ENCOUNTER 2018-03-29 11:34 | Emergency (ER) | END 2018-03-29 12:39 | disposition home or self-care (01) ==

== ENCOUNTER 2018-11-06 10:59 | Emergency (ER) | payer MEDICAID ==
[~2018-11-06] VITALS: Ht 149.9 cm; Wt 80.0 kg
[~2018-11-06 10:59] MED LIST changes: +BENZ200C68 PO; -CALC600T11 PO; +CALC600T24 PO; +D-ME473S2 PO; +HYDR-4011 PO; +IBUP-1542 PO; +ORPH100T PO; +PRED20TA PO
[2018-11-06 11:06] VITALS: BP 138/92; PULSE 87; RESP 16; Ht 149.9 cm; Wt 80.0 kg
--- NOTE | 2018-11-06 12:08 | ERD ---
ER Documentation Chief Complaint Chief Complaint pt is bib self with c/o cough and foot pain for a few days HPI This is a 38-year-old female who states she has had a cough for 1 week. She is tried NyQuil. Her cough is dry and worse at night. She is also has a history of gout and is complaining of flareup of gout in her left heel. Has not taken any medications for this. No fever. No injury or trauma. No hemoptysis or unplanned weight loss. ROS All systems reviewed and are negative except as per history of present illness. Medications Home Meds Active Scripts Hydrocodone/Acetaminophen ([place] 5-325 Tablet) 1 Each Tablet, 1 EACH PO TID PRN for SEVERE PAIN LEVEL 7-10, #12 TAB Prov:EVERARDO MÉNDEZ MD 03/29/18 Prednisone* (Prednisone*) 20 Mg Tab, 60 MG PO DAILY for 5 Days, TAB Prov:EVERARDO MÉNDEZ MD 03/29/18 Ibuprofen* (Ibuprofen*) 600 Mg Tablet, 600 MG PO Q6 for 7 Days, TAB Prov:GUTIERREZ CHRISTIANSON 08/06/17 Orphenadrine Citrate (Norflex) 100 Mg Tablet.sa, 100 MG PO BID, #10 TAB.SA Prov:GUTIERREZ CHRISTIANSON 08/06/17 Dextromethorphan Hb-Promethazine Hcl* (Promethazine DM* Syrup) 473 Ml Syrup, 5 ML PO Q6 PRN for COUGH, #120 ML Prov:ABNDAR COREAS PA-C 05/11/17 Benzonatate* (Benzonatate*) 200 Mg Capsule, 200 MG PO TID PRN for COUGH, #20 CAP Prov:BANDAR COREAS PA-C 05/11/17 Reported Medications Calcium Carbonate* (Calcium Carbonate*) 600 MG Ca Tab, 600 MG PO, TAB 07/19/16 Ferrous Sulfate (Iron) 325 Mg Capsule.er, 325 MG PO, CAP 07/19/16 Multivit/Min/Fol Ac/Iron/Pren* ( S*) 1 Tab Tab, 1 TAB PO DAILY, TAB 07/19/16 Allergies Allergies: Coded Allergies: No Known Allergy (Unverified , 05/11/17) PMhx/Soc History of Surgery: Yes (c section 07/2016) Anesthesia Reaction: No Hx Neurological Disorder: No Hx Respiratory Disorders: No Hx Cardiac Disorders: Yes (a fib) Hx Psychiatric Problems: No Hx Miscellaneous Medical Probl: Yes (GOUT) Hx Alcohol Use: No Hx Substance Use: No Hx Tobacco Use: No (STOPPED MOS AGO) Smoking Status: Former smoker FmHx Family History: No diabetes Physical Exam Vitals Vital Signs Date Temp Pulse Resp B/P (MAP) Pulse Ox O2 O2 Flow FiO2 Time Delivery Rate 11/06/18 98.0 87 16 138/92 99 11:06 (107) Physical Exam INITIAL VITAL SIGNS: Reviewed by me GENERAL: Awake, alert and oriented x 4, well appearing, nontoxic, speaking in full sentences. No acute distress HEAD: Atraumatic NECK: Supple. No masses. Full range of motion. No meningismus. No midline tenderness. NOSE: Normal nose. THROAT: No tonilar erythema or edema. No exudates. Uvula midline. No kissing tonsils. RESPIRATORY: Clear to auscultation bilaterally. Symmetric chest wall rise. No wheezing or rales. No accessory muscle use. CV: Regular rate and rhythm. No murmurs, rubs, or gallops. Lower Extremity -left : Skin: No laceration Compartments: Soft Motor: Full active range of motion hip/knee/ankle/foot Sensation: Intact to light touch FDWS/MF/LF/P surfaces. Bones: Nontender pelvis/knee/proximal tibia/ malleoli/foot Joints: No effusion or laxity Pulses/Perfusion: 2+ DP, Capillary refill < 2 seconds Procedures/MDM This is an otherwise healthy, well appearing patient presenting with uncomplicated URI symptoms, likely viral in etiology. Patient is non-toxic and well hydrated. I have low suspicion for pneumonia or significant bacterial disease. Patient will be treated with outpatient supportive care; no indications for antibiotics at this time. Discharge instructions have included return precautions and close follow up with PMD. Patient given medication for gout as well. Patient counseled regarding my diagnostic impression and care plan. Prior to discharge all questions answered. Pt agrees with treatment plan and understands strict return precautions. Pt is instructed to follow up with primary care provider within 24-48 hours. Precautionary instructions provided including instructions to return to the ER if not improving or for any worsening or changing symptoms or concerns. Departure Diagnosis: Primary Impression: Bronchitis Additional Impression: Foot pain Condition: Stable ERICKA HERRERA PA-C Nov 06, 2018 12:08
[2018-11-06] MEDS ORDERED: IBUP800T48 PO (12:09)
[2018-11-06] MEDS ORDERED: MED4DP PO (12:09)
== END 2018-11-06 12:29 | disposition home or self-care (01) ==
LOC: FTE 10:59
DX: J40 Bronchitis, not specified as acute or chronic (principal); M79.672 Pain in left foot; Z87.891 Personal history of nicotine dependence
CPT/HCPCS: 99283